=== PATIENT | female | born 1965 | race Caucasian/White ===

== ENCOUNTER 2017-01-01 20:12 | Emergency (ER) | payer OTHER ==
[2017-01-01 20:31] VITALS: BP 136/87; PULSE 74; TEMP 98.7; BMI 30.7
--- NOTE | 2017-01-01 21:30 | PDOC ---
History of Present Illness - General Chief Complaint: Eye Problem Stated Complaint: RT EYE SWOLLEN Time Seen by Provider: 01/01/17 20:58 History Source: Patient Exam Limitations: No Limitations - History of Present Illness Initial Comments: 01/01/17 21:25 51-year-old female presents the ED with right eye swelling. Patient states initially started as a small mildly tender bump now getting bigger since yesterday and more red. Patient states has been applying warm soaks since this morning with no improvement and brought otc stye drops. Patient states no improvement and denies any visual changes, eye discharge, or pain to the eyeball. Patient states with glasses but has not used contacts recently and denies any recent new makeup or topicals patient states has been using the same mascara for about 1 year. Timing/Duration: constant Severity: mild Associated Symptoms: reports: other Past History - Past Medical History Allergies/Adverse Reactions: Allergies Allergy/AdvReac Type Severity Reaction Status Date / Time No Known Allergies Allergy Verified 01/01/17 20:29 Home Medications: Ambulatory Orders Ondansetron HCl [Zofran] 4 mg PO TID PRN #12 tablet 09/07/16 Bacitracin Ophthalmic Oint - 0.5 inch OD TID #1 tube 01/01/17 Prednisone [Deltasone -] 40 mg PO DAILY #8 tablet 01/01/17 GI Disorders: Yes - Surgical History Appendectomy: Yes Cholecystectomy: Yes - Psycho/Social/Smoking Cessation Hx Suicidal Ideation: No Smoking History: Never smoked Have you smoked in the past 12 months: No Information on smoking cessation initiated: No Hx Alcohol Use: No Drug/Substance Use Hx: No Patient Lives Alone: No Lives with/in: spouse/SO Review of Systems - Review of Systems Able to Perform ROS?: Yes Constitutional: No: Symptoms Reported HEENTM: Yes: Eye Pain Integumentary: Yes: Erythema, Lumps Neurological: No: Symptoms reported *Physical Exam - Vital Signs Last Vital Signs Temp Pulse Resp BP Pulse Ox 98.7 F 74 20 136/87 99 01/01/17 20:29 01/01/17 20:29 01/01/17 20:29 01/01/17 20:29 01/01/17 20:29 - Physical Exam General Appearance: Yes: Nourished, Appropriately Dressed. No: Apparent Distress HEENT: positive: EOMI, LAURA, Other (Patient with noted erythematous upper eyelid of the rt eye with palpable well circumscribed round mass to lateral aspect of upper eyelid. Lacrimal duct intact. Sclera white.) Neck: positive: Supple Respiratory/Chest: positive: Lungs Clear, Normal Breath Sounds. negative: Respiratory Distress, Accessory Muscle Use Cardiovascular: positive: Regular Rhythm, Regular Rate. negative: Murmur Integumentary: positive: Erythema (right upper eyelid), Swelling Medical Decision Making - Medical Decision Making 01/01/17 21:30 Patient with right eye swelling and redness secondary to hordeolum. Patient be discharged home with supportive care which includes hot soaks, bacitracin ointment. Secondary to edema patient also be given a prescription for prednisone if no resolution of edema to begin tomorrow night for the next 4 days. *DC/Admit/Observation/Transfer Diagnosis at time of Disposition: Hordeolum externum of right eye Qualifiers: Eyelid: upper Qualified Code(s): H00.011 - Hordeolum externum right upper eyelid - Discharge Dispostion Disposition: HOME Condition at time of disposition: Good - Prescriptions Prescriptions: Bacitracin Ophthalmic Oint - 0.5 inch OD TID #1 tube Prednisone [Deltasone -] 40 mg PO DAILY #8 tablet - Referrals Referrals: STAFF,NOT ON [Primary Care Provider] - - Patient Instructions Printed Discharge Instructions: DI for Hordeolum Additional Instructions: I recommend hot soaks as much as you can tolerate for the next 3 days. Please use bacitracin ointment as prescribed. If no improvement by tomorrow night please begin prednisone.
== END 2017-01-01 22:38 | disposition home or self-care (01) ==
LOC: JERFT 20:12
DX: H00.011 Hordeolum externum right upper eyelid (principal)
CPT/HCPCS: 99281-25

== ENCOUNTER 2017-10-17 19:24 | Emergency (ER) | payer OTHER ==
[2017-10-17 19:34] VITALS: BP 151/79; PULSE 70; TEMP 98.8; BMI 31.9
--- NOTE | 2017-10-17 19:37 | PDOC ---
History of Present Illness - History of Present Illness Initial Comments: 10/17/17 20:32 The patient is a 52 year old female, with no significant past medical history, who presents to the emergency department with, approx 5 days of dry cough, measured fever (102 F), sore throat, headache, and mild shortness of breath. The patient also reports generalized body aches secondary to the dry cough. The patient denies chance of . The patient reports she was concerned she may have the flu so she wanted to come to the ED for evaluation. She denies recent nausea, vomit, diarrhea or constipation. She denies recent dysuria, frequency, urgency or hematuria. She denies recent chest pain. PAST MEDICAL HISTORY: no significant history PAST SURGICAL HISTORY: no significant history FAMILY HISTORY: no pertinent history SOCIAL HISTORY: Pt lives with family and is employed. MEDICATIONS: reviewed ALLERGIES: As per nursing notes Review of Systems General: +Fever. +Chills. No weakness, no weight loss HEENT: +Sore throat. No change in vision. No ear pain CardioVascular: +Mild shortness of breath. No chest pain. Respiratory: +Dry cough. No wheezing. Gastrointestinal: no nausea, vomiting, diarrhea or constipation, No rectal bleeding Genitourinary: No dysuria, hematuria, or frequency Musculoskeletal: +Generalized body aches. Neurologic: +Headache. No vertigo, dizziness or loss of consciousness Psychiatric: nor depression Skin: No rashes or easy bruising Endocrine: no increased thirst or abnormal weight change Allergic: no skin or latex allergy All other systems reviewed and normal Physical Exam General: Well-nourished well-developed individual, no acute distress HEENT: Throat: Normal, tonsils normal, no erythema or exudate Neck: Supple, no meningeal signs, no lymphadenopathy Eyes::Pupils equal reactive and round, extraocular motion intact Chest: Nontender to palpation Cardiac: S1-S2 normal, regular rate and rhythm, no murmurs rubs or gallops Respiratory: Lungs clear to auscultation bilateral Extremities: Warm, dry, no cyanosis, clubbing, or edema Skin: No rashes Neuro: Alert and oriented x3, nonfocal exam, grossly intact, normal gait Psych: Normal mood and affect <Paul Low - Last Filed: 10/17/17 21:17> - General History Source: Patient Exam Limitations: No Limitations - History of Present Illness Initial Comments: A portion of this note was documented by scribe services under my direction. I have reviewed the details of the note, within reason, and agree with the documentation. The case summary and management plan written by me. 10/17/17 20:11 This is a 52-year-old female comes in complaining of flulike illness with approximately 5 days now of initially fever, headache body aches and then progressed to cough and pleuritic type chest pain. Patient has had about 2 days of fevers initially at the beginning but none now. Will obtain chest x-ray to rule out any pulmonary pathology or infection. Flu swab sent Will reassess and evaluate results of workup 10/17/17 20:26 Reassessment patient remains clinically stable and unchanged Chest x-ray shows no acute pathology We'll give patient Tessalon Perles for her cough Will give patient ibuprofen for the muscle soreness of her chest wall from coughing Will start patient on Tamiflu as CDC does recommend giving Tamiflu even if it is past the 48 hour yamilet. <Allen Cruz I - Last Filed: 10/17/17 22:10> - General Chief Complaint: Cold Symptoms Stated Complaint: cough,congestion Time Seen by Provider: 10/17/17 19:27 Past History <Paul Low - Last Filed: 10/17/17 21:17> - Past Medical History COPD: No GI Disorders: Yes - Surgical History Appendectomy: Yes Cholecystectomy: Yes - Suicide/Smoking/Psychosocial Hx Smoking History: Never smoked Have you smoked in the past 12 months: No Hx Alcohol Use: No Drug/Substance Use Hx: No Substance Use Type: None <Allen Cruz I - Last Filed: 10/17/17 22:10> - Past Medical History Allergies/Adverse Reactions: Allergies Allergy/AdvReac Type Severity Reaction Status Date / Time No Known Allergies Allergy Verified 10/17/17 19:25 Home Medications: Ambulatory Orders Benzonatate [Tessalon Pearls -] 100 mg PO TID #21 capsule 10/17/17 Oseltamivir Phosphate [Tamiflu -] 75 mg PO BID #10 capsule 10/17/17 *Physical Exam - Vital Signs Last Vital Signs Temp Pulse Resp BP Pulse Ox 98.8 F 70 18 151/79 99 10/17/17 19:25 10/17/17 19:25 10/17/17 19:25 10/17/17 19:25 10/17/17 19:25 <Paul Low - Last Filed: 10/17/17 21:17> - Vital Signs Last Vital Signs Temp Pulse Resp BP Pulse Ox 98.8 F 70 18 151/79 99 10/17/17 19:25 10/17/17 19:25 10/17/17 19:25 10/17/17 19:25 10/17/17 19:25 <Allen Cruz I - Last Filed: 10/17/17 22:10> *DC/Admit/Observation/Transfer - Attestations Scribe Attestion: 10/17/17 20:33 Documentation prepared by Paul Low, acting as medical data entry clerk for Allen Cruz MD. <Paul Low - Last Filed: 10/17/17 21:17> - Discharge Dispostion Admit: No <Allen Cruz I - Last Filed: 10/17/17 22:10> Diagnosis at time of Disposition: Influenza-like illness - Discharge Dispostion Disposition: HOME Condition at time of disposition: Stable - Prescriptions Prescriptions: Benzonatate [Tessalon Pearls -] 100 mg PO TID #21 capsule Oseltamivir Phosphate [Tamiflu -] 75 mg PO BID #10 capsule - Patient Instructions Additional Instructions: Take ibuprofen 3 tablets 3 times a day with food don't take on an empty stomach this is for the pain associated with coughing. Get your prescription filled for Tessalon Perle and take one tablet 3 times a day do not chew or break the tablet swallow a whole. Get the prescription filled for Tamiflu and take as directed one tablet twice a day for 5 days. Return to the emergency department immediately with ANY new, persistent or worsening symptoms. Continue any medications as previously prescribed by your physician. You should follow up with your primary doctor as soon as possible regarding today's emergency department visit. . Please make sure your doctor reviews the results of your emergency evaluation. Thank you for coming to the Emergency Department today for your care. It was a pleasure to see you today. Please note that your evaluation is INCOMPLETE until you follow-up with your doctor.
[2017-10-17] MEDS ORDERED: OSELTAMIVIR PHOSPHATE 75 MG CAPSULE PO ONE (20:28)
[2017-10-17] MEDS ORDERED: IBUPROFEN 600 MG TABLET (FP) PO ONE ×2 (20:29→20:30)
[2017-10-17] MEDS ORDERED: OSELTAMIVIR PHOSPHATE 75 MG CAPSULE ONE (20:30)
[2017-10-17] MEDS ORDERED: predniSONE 20 MG TABLET (UD) PO ONE (20:34)
[2017-10-17] MEDS ORDERED: predniSONE 20 MG TABLET (UD) ONE (20:34)
== END 2017-10-17 20:40 | disposition home or self-care (01) ==
LOC: FER 19:24
DX: J11.1 Influenza due to unidentified influenza virus with other respiratory manifestations (principal)
CPT/HCPCS: 71046-TC-FY; 87804; 99281-25